=== PATIENT | male | born 2000 | race African-American/Black ===

== ENCOUNTER 2022-06-28 17:38 | Emergency (ER) | payer BC, SELFPAY ==
[2022-06-28 17:45] VITALS: BP 118/71; PULSE 94; RESP 16; TEMP 37.9; O2SAT 100
--- NOTE | 2022-06-28 18:23 | ED.URI ---
HPI - URI/Sore Throat General Chief Complaint: Upper Respiratory Infection Stated Complaint: sore throat, cough, swollen tonsils Time Seen by Provider: 06/28/22 17:50 Source: patient Mode of arrival: ambulatory Limitations: no limitations History of Present Illness HPI Narrative: Mr. Fontanez is a 22-year-old male patient presenting to clinic today with complaints of sore throat, bilateral ear pain and swollen tonsils and fever x1 week. He reports he has had a slight cough. No nasal drainage MD elicited complaint: sore throat and nasal congestion Related Data Allergies Allergy/AdvReac Type Severity Reaction Status Date / Time No Known Allergies Allergy Unknown Unverified 03/23/16 10:14 Review of Systems Review of Systems: Pertinent positives per HPI. Patient denies any rash, headache, visual changes, dizziness, shortness of breath, chest pain, palpitations, nausea, vomiting, diarrhea, constipation, abdominal pain, or any urinary issues. PMFSH Family History Family History Grandparent Family history of Alzheimer's disease Family history of malignant neoplasm of ovary Family history of lupus erythematosus Mother Family history of diabetes mellitus in first degree relative Family history of lupus erythematosus Patient's mother is Family history of sickle cell trait Social History Social History Smoking status: Never smoker Alcohol intake: never Comments At the time of my signature, I reviewed and agree with the nursing past medical, surgical, social, and family history. There is no relevant family history pertinent to the patient complaint. Exam Narrative: General: Well-developed, well nourished, in no apparent distress Head: Normocephalic, atraumatic Eyes: Pupils equally round and reactive to light bilaterally, EOM intact, sclera and conjunctive clear, no discharge, lids normal Ears: TMs intact and congested , ear canals clear, no drainage, grossly hearing normal. Nose: Nares patent, no discharge, no inflammation, no sinus tenderness. Mouth: Oral pharynx without lesions or masses, good dentition, MMM. Bilateral tonsillar enlargement/erythema Neck: Supple, trachea midline, enlargement of anterior cervical nodes, no thyroid masses or goiter palpable. Cardio: Regular rate and rhythm, s1 and s2 normal, no murmur appreciated. Resp: Clear to auscultation bilaterally, no rhonchi, rales, wheezing or rubs Course Course Emergency Course: Portions of this record may have been created with voice recognition software. Level of Care: Express Care Visit Vital Signs Vital signs: Vital Signs Temperature 37.9 C H 06/28/22 17:45 Pulse Rate 94 06/28/22 17:45 Respiratory Rate 16 06/28/22 17:45 Blood Pressure 118/71 06/28/22 17:45 Pulse Oximetry 100 06/28/22 17:45 Oxygen Delivery Room Air 06/28/22 17:45 Temperature 37.9 C H 06/28/22 17:45 Pulse Rate 94 06/28/22 17:45 Respiratory Rate 16 06/28/22 17:45 Blood Pressure 118/71 06/28/22 17:45 Pulse Oximetry 100 06/28/22 17:45 Oxygen Delivery Room Air 06/28/22 17:45 Vital signs reviewed MDM - URI/Sore Throat MDM Narrative Medical decision making narrative: At the time of visit patient is resting comfortably on the exam table. Strep screen was obtained but was negative however her is Cent[facility] criteria is 3/4 so I will go ahead empirically treat as I feel this is more likely strep prescription for amoxicillin as well as prednisone was sent to the pharmacy to help with the eustachian tube dysfunction and the throat swelling. Supportive measures were discussed with the patient he voiced understanding of discharge instructions and agrees to treatment plan Differential Diagnosis Differential diagnosis: Likely sinusitis, viral infection, influenza and pharyngitis Lab Data Labs: Strep Screen
== END 2022-06-28 18:30 | disposition home or self-care (01) ==
PROVIDERS: Emergency Provider Nurse Practitioner Family
DX: J02.9 Acute pharyngitis, unspecified (principal); H69.90 Unspecified Eustachian tube disorder, unspecified ear
CPT/HCPCS: 87081; 87880; 99203; G0463

== ENCOUNTER 2023-09-05 16:58 | Emergency (ER) | payer BC, SELFPAY ==
--- NOTE | 2023-09-05 17:00 | ED.EXTPRO ---
HPI - Extremity Problem General Stated complaint: Leg pain Time Seen by Provider: 09/05/23 17:00 Source: patient Mode of arrival: ambulatory Limitations: no limitations History of Present Illness HPI Narrative: Rajesh is a 23-year-old male patient presenting to the clinic today with complaints of leg pain times. He reports Related Data Allergies Allergy/AdvReac Type Severity Reaction Status Date / Time No Known Allergies Allergy Unknown Unverified 09/05/23 17:01 Review of Systems Review of Systems: Pertinent positives per HPI. Patient denies any fever, chills, rash, headache, visual changes, dizziness, cough, runny nose, sore throat, shortness of breath, chest pain, palpitations, nausea, vomiting, diarrhea, constipation, abdominal pain, or any urinary issues. PMFSH Family History Family History Grandparent Family history of Alzheimer's disease Family history of malignant neoplasm of ovary Family history of lupus erythematosus Mother Family history of diabetes mellitus in first degree relative Family history of lupus erythematosus Patient's mother is Family history of sickle cell trait Social History Social History Smoking status: Never smoker Alcohol intake: never Comments At the time of my signature, I reviewed and agree with the nursing past medical, surgical, social, and family history. There is no relevant family history pertinent to the patient complaint. Exam Narrative: General: Well-developed, well nourished, in no apparent distress Head: Normocephalic, atraumatic. Cardio: Regular rate and rhythm, s1 and s2 normal, no murmur appreciated. Resp: Clear to auscultation bilaterally, no rhonchi, rales, wheezing or rubs. Musculoskeletal: No deformity, non-tender to palpation, grossly normal range of motion, muscle strength strong and equal, peripheral pulse strong, no edema, no cyanosis, normal gait and station Course Course Emergency Course: Portions of this record may have been created with voice recognition software. Level of Care: Express Care Visit Vital Signs Vital signs: Vital signs reviewed MDM - Extremity (Nontraumatic) MDM Narrative Medical decision making narrative: At the time of visit patient is resting comfortably on the exam table. Patient appears to be nontoxic. Supportive measures were discussed with the patient and they voiced understanding discharge instructions and agrees to treatment plan. Return precautions reviewed Discharge Plan Discharge Prescriptions: No Action amoxicillin 500 mg capsule 500 mg PO Q12H 10 Days Qty: 20 0RF prednisone 20 mg tablet 40 mg PO DAILY 5 Days Qty: 10 0RF Follow-up/Referrals: UNKNOWN,DOCTOR [Non-Staff] - Quality NIHSS Nursing Documentation ED NIHSS nursing documentation: reviewed/agree
[2023-09-05 17:04] VITALS: BP 114/78; PULSE 82; RESP 16; TEMP 36.9; O2SAT 100
--- NOTE | 2023-09-05 17:16 | ED.MALEGU ---
HPI - Male Genitourinary General Chief complaint: Urogenital-Male Stated complaint: right testicle pain Time Seen by Provider: 09/05/23 17:00 Source: patient Mode of arrival: ambulatory Limitations: no limitations History of Present Illness MD Complaint: testicle pain and other (Rajesh is a 23-year-old male patient presenting to the clinic today with complaints of right testicular pain. He reports that this has been going on for 2-3 days. No known injury to the testicle. Denies any fever or chills. Denies any painful urination, blood in his urine, or blood in his semen.) Related Data Allergies Allergy/AdvReac Type Severity Reaction Status Date / Time No Known Allergies Allergy Unknown Unverified 09/05/23 17:01 Review of Systems Review of Systems: Pertinent positives per HPI. Patient denies any fever, chills, rash, headache, visual changes, dizziness, cough, runny nose, sore throat, shortness of breath, chest pain, palpitations, nausea, vomiting, diarrhea, constipation, abdominal pain, or any urinary issues. PMFSH Family History Family History Grandparent Family history of Alzheimer's disease Family history of malignant neoplasm of ovary Family history of lupus erythematosus Mother Family history of diabetes mellitus in first degree relative Family history of lupus erythematosus Patient's mother is Family history of sickle cell trait Social History Social History Smoking status: Never smoker Alcohol intake: never Comments At the time of my signature, I reviewed and agree with the nursing past medical, surgical, social, and family history. There is no relevant family history pertinent to the patient complaint. Exam Narrative: General: Well-developed, well nourished, in no apparent distress. Head: Normocephalic, atraumatic. Cardio: Regular rate and rhythm, s1 and s2 normal, no murmur appreciated. Resp: Clear to auscultation bilaterally, no rhonchi, rales, wheezing or rubs. Abdomen: Soft, pliable, bowel sounds present in all quadrants, non-tender to palpation, no organomegly, no CVAT tenderness. : Circumcised male without corneal adhesions, no lesions noted on the penis or scrotum, swelling noted to the right testicle/epididymis with tenderness/firmness to palpation, no erythema, decreased right cremasteric reflex, discomfort to palpation of the right inguinal area. Course Course Emergency Course: Portions of this record may have been created with voice recognition software. Level of Care: Express Care Visit Vital Signs Vital signs: Vital Signs Temperature 36.9 C 09/05/23 17:04 Pulse Rate 82 09/05/23 17:04 Respiratory Rate 16 09/05/23 17:04 Blood Pressure 114/78 09/05/23 17:04 Pulse Oximetry 100 09/05/23 17:04 Temperature 36.9 C 09/05/23 17:04 Pulse Rate 82 09/05/23 17:04 Respiratory Rate 16 09/05/23 17:04 Blood Pressure 114/78 09/05/23 17:04 Pulse Oximetry 100 09/05/23 17:04 Vital signs reviewed Transfer Transfered to: [facility] Transportation: Other (private car) Transfer rationale: Right testicular pain- r/o torsion Accepting physician: Dr. Green Transfer comments: Transfer via private car MDM - Male Genitourinary MDM Narrative Medical decision making narrative: At the time of visit patient is resting comfortably on the exam table. Patient appears to be nontoxic. Recommend transfer to the emergency room for further evaluation. Patient agrees to transfer. Patient like to go to [facility]. Contacted Dr. Green and report was given for continuity of care. Patient transported per private car. Differential Diagnosis Differential diagnosis: Likely epididymitis, inguinal hernia and other (Orchitis, testicular torsion, STI) Discharge Plan Discharge Clinical Impression: Right testicular pain Patient
== END 2023-09-05 17:17 | disposition short-term general hospital (02) ==
PROVIDERS: Emergency Provider Nurse Practitioner Family
DX: N50.811 Right testicular pain (principal)
CPT/HCPCS: 99212; G0463

== ENCOUNTER 2023-09-05 17:32 | Emergency (ER) | payer BC, SELFPAY ==
--- NOTE | ~2023-09-05 | US_ITS ---
EXAMINATION: US scrotum doppler DATE: 09/05/2023 18:24 INDICATION: Right testicular pain and swelling. TECHNIQUE: Grayscale and Doppler ultrasound images of the testes were obtained. COMPARISON: Ultrasound 03/23/2016 FINDINGS: The right testis measures 4.8 x 3.0 x 3.9 cm. The left testis measures 4.8 x 3.0 x 3.4 cm. There is normal vascular flow to both testes. The right epididymis demonstrates increased vascular fl ow. The left epididymis is normal with normal vascular flow. There is no varicocele or hydrocele. IMPRESSION: 1. Hyperemic right epididymis, consistent with right-sided epididymitis. Reviewed, dictated and finalized at location E. [employer]
[2023-09-05 17:34] VITALS: BP 126/69; PULSE 83; RESP 83; TEMP 36.7; O2SAT 100
[2023-09-05 19:29] LABS: Appearance Urine Clear (Clear); Bilirubin Urine Negative (Negative); Blood Urine Negative (Negative); Color Urine Yellow (Yellow); Glucose Urine UA Negative (Negative); Ketones Urine Negative (Negative); Leukocyte Esterase Ur Negative LEU/UL (Negative); Nitrate Urine Negative (Negative); Protein Urine Negative (Negative)
[2023-09-05 19:56] LABS: Add Urine Microscopic? NO
--- NOTE | 2023-09-05 20:01 | ED.MALEGU ---
HPI - Male Genitourinary General Chief complaint: Urogenital-Male Stated complaint: right testicular pain Time Seen by Provider: 09/05/23 18:59 Source: patient Limitations: no limitations History of Present Illness HPI Narrative: Patient is a 23-year-old male presents to the emergency department complaining of a dull ache in his right testicle with some mild swelling over the past 1 week. Patient denies any preceding injury. Patient denies any history of sexually transmitted infections. Patient admits to being sexually active with 1 partner and no new partners. Patient denies any penile discharge, dysuria, history of this in the past, anal intercourse, rash, body aches, vomiting, fever, back pain, diarrhea, genital lesions, recent strenuous activity. Related Data Allergies Allergy/AdvReac Type Severity Reaction Status Date / Time No Known Allergies Allergy Unknown Unverified 09/05/23 17:01 Review of Systems Review of Systems: A 10 system review of systems was completed on the patient and is negative except for what is stated in the HPI. Nursing and ancillary documentation was reviewed. [facility] Family History Family History Grandparent Family history of Alzheimer's disease Family history of malignant neoplasm of ovary Family history of lupus erythematosus Mother Family history of diabetes mellitus in first degree relative Family history of lupus erythematosus Patient's mother is Family history of sickle cell trait Social History Social History Smoking status: Never smoker Alcohol intake: never Comments At time of signature, I have reviewed and agree with nursing past medical, surgical, social and family history unless otherwise noted. Please see the nursing chart for further information. There is no relevant family history pertinent to the presenting complaint. Exam Narrative: CONST: No acute distress. Well nourished. HENMT: Head is normocephalic and atraumatic. Moist mucous membranes. No posterior oropharynx erythema. EYES: No conjunctival icterus, injection, or pallor. PERRL. NECK: No meningeal signs. RESP: Able to speak in full sentences. Normal respiratory effort. CTAB. CARDIO: Regular rate. Regular rhythm. 2+ DP and radial pulses bilaterally. GI: Nondistended. No tenderness to palpation. Soft. : No CVA tenderness to palpation. Mild right testicular swelling with mild tenderness to palpation. Positive Prehn sign on the right. Bilateral cremasteric reflexes are present. Penis is circumcised. No penile or scrotal or perineal lesions or erythema or crepitus. Bilateral testicles are descended. SKIN: No rashes or lesions noted on exposed skin. NEURO: Oriented x3. Moves all extremities. EXTREM/MSK/BACK: No pedal edema. PSYCH: Normal affect. Course Vital Signs Vital signs: Vital Signs Temperature 98.0 F 09/05/23 17:34 Pulse Rate 83 09/05/23 17:34 Respiratory Rate 83 H 09/05/23 17:34 Blood Pressure 126/69 09/05/23 17:34 Pulse Oximetry 100 09/05/23 17:34 Oxygen Delivery Room Air 09/05/23 17:34 Temperature 98.0 F 09/05/23 17:34 Pulse Rate 81 09/05/23 20:18 Respiratory Rate 20 09/05/23 20:18 Blood Pressure 128/71 09/05/23 20:18 Pulse Oximetry 99 09/05/23 20:18 Oxygen Delivery Room Air 09/05/23 17:34 MDM - Male Genitourinary MDM Narrative Medical decision making narrative: Patient presents with the above complaint. Initial vitals are remarkable for no significant abnormalities. Physical examination as noted above. Plan discussed: Urinalysis, STI urine testing, scrotum ultrasound. Patient ordered ceftriaxone 500 mg IM addition to doxycycline 100 mg p.o.. Patient was reassessed at the bedside. No changes in physical exam. Patient is in no acute distress. The patient has remained stable throughout the entire ED
[2023-09-05] MEDS: DOXYCYCLINE HYCLATE 100 MG TABLET PO (20:14)
[2023-09-05] MEDS: WATER, STERILE FOR INJECTION 10 ML VIAL XX (20:15)
[2023-09-05] MEDS: cefTRIAXone 1 GM VIAL 0.5 GM IM (20:15)
[2023-09-05] MEDS: IBUPROFEN 600 MG TABLET PO (20:15)
[2023-09-05 20:18] VITALS: BP 128/71; PULSE 81; RESP 20; O2SAT 99
[2023-09-05 22:00] LABS: Trichomonas Vag PCR NOT DETECTED (NOT DETECTE)
[2023-09-05 22:26] LABS: Chlamydia trachomatis NOT DETECTED (NOT DETECTE); Neisseria gonorrhoeae PCR NOT DETECTED (NOT DETECTE)
== END 2023-09-05 20:24 | disposition home or self-care (01) ==
PROVIDERS: Physician Assistant; Emergency Provider Student in an Organized Health Care Education/Training Program
DX: N45.1 Epididymitis (principal)
CPT/HCPCS: 76870; 81003; 87491; 87591; 87661; 93976; 96372; 99283; 99284; A9270; J0696